=== PATIENT | female | born 1990 | race Caucasian/White ===

== ENCOUNTER 2019-09-08 20:56 | Observation (INO) ==
[2019-09-08] MEDS ORDERED: Ringers Solution, Lactated 1,000 ML IVC SCH (21:30)
[2019-09-08] MEDS ORDERED: Acetaminophen 325 MG TABLET PO PRN (21:37)
[2019-09-08] MEDS ORDERED: *HR* Promethazine 25 MG/ML VIAL IVP PRN (21:38)
[2019-09-08] MEDS ORDERED: Ondansetron 4 MG/2 ML VIAL IVP PRN (21:38)
[2019-09-08 21:48] LABS: Basophils # 0.1 K/mcL (0.0-0.2); Basophils % 0.3 %; Hemoglobin 12.8 g/dL (11.5-15.4); Lymphocytes % 4.8 %; Mean Corpuscular HGB Conc 34.6 g/dL (31.6-35.5); Mean Corpuscular Hemoglobin 29.8 pg (28.0-33.3); Mean Corpuscular Volume 86.2 fL (83.0-100.0); Monocytes # 1.4 K/mcL (0.0-1.3); Monocytes % 6.4 %; Neutrophils # 18.4 K/mcL (1.6-8.9); Platelet Count 244 K/mcL (140-400); Red Blood Count 4.29 M/mcL (3.82-4.97); Red Cell Distribution Width 13.4 % (11.5-14.5); Segmented Neutrophils % 86.5 %; White Blood Count 21.3 K/mcL (4.3-11.1)
[2019-09-08 21:59] LABS: Amphetamine Screen,Urine Negative ng/mL (Cutoff=1000); Barbiturate Screen,Urine Negative ng/mL (Cutoff=200); Benzodiazepines Screen,Urine Negative ng/mL (Cutoff=200); Cannabinoid Screen,Urine Negative ng/mL (Cutoff = 50); Cocaine Screen,Urine Negative ng/mL (Cutoff= 300); Opiate Screen,Urine Negative ng/mL (Cutoff=300); Phencyclidine Screen,Urine Negative ng/mL (Cutoff=25)
[2019-09-08] MEDS: Ringers Solution, Lactated 1,000 ML IVC ONE ×2 (21:59→23:36)
[2019-09-08 22:03] LABS: Alanine Aminotransferase 14 Units/L (7-52); Albumin 3.6 g/dL (3.5-5.7); Albumin/Globulin Ratio 1.1 (1.1-2.2); Alkaline Phosphatase 118 Units/L (34-104); Aspartate Amino Transferase 17 Units/L (13-39); BUN/Creatinine Ratio 10 (6-26); Bilirubin,Total 0.8 mg/dL (0.3-1.0); Blood Urea Nitrogen 6 mg/dL (6-20); Calcium 8.8 mg/dL (8.6-10.3); Carbon Dioxide 18 mEq/L (23-29); Chloride 104 mEq/L (98-107); Globulin 3.3 g/dL (2.4-3.5); Glucose 96 mg/dL (70-105); Osmolality,Calculated 275 (280-300); Potassium 3.6 mEq/L (3.5-5.1); Sodium 134 mEq/L (136-145); Total Protein 6.9 g/dL (6.4-8.9); eGFR For African Americans > 60 (> 60); eGFR For Non-African Americans > 60 (> 60)
[2019-09-08 22:08] LABS: Clarity,Urine Turbid (Clear); Color,Urine Dark Yellow (Yellow)
[2019-09-08 22:09] LABS: Bilirubin,Urine Small (Negative); Blood,Urine Small (Negative); Glucose,Urine (UA) Normal (Normal); Ketones,Urine >=160 mg/dL (Negative); Leukocyte Esterase,Urine Large (Negative); Nitrite,Urine Positive (Negative); Protein,Urine 100 mg/dL (Neg-Trace); Specific Gravity,Urine 1.023 (1.010-1.025); Urobilinogen,Urine Normal (Normal)
[2019-09-08 22:10] LABS: Bacteria,Urine Many per hpf (None-Few); Mucus,Urine Few per lpf (Few); Squamous Epithelial Cell,Urine Many per lpf (None-Few); WBC,Urine TNTC per hpf (0-3)
[2019-09-08] MEDS ORDERED: cefTRIAXone 1,000 MG in 0.9 % Sodium Chloride Mini Bag 100 ML IVPB ONE (22:40)
[2019-09-08] MEDS ORDERED: NIFEdipine 10 MG CAPSULE PO ONE ×2 (22:43→23:25)
[2019-09-08 23:06] LABS: Candida DNA Not Detected (Not Detect); Gardnerella DNA Not Detected (Not Detect); Trichomonas DNA Not Detected (Not Detect)
[2019-09-08] MEDS ORDERED: Ondansetron 4 MG/2 ML VIAL IVP ONE (23:15)
[2019-09-08] MEDS ORDERED: Ringers Solution, Lactated 1,000 ML IVC ONE (23:25)
[2019-09-09] MEDS ORDERED: Famotidine 20 MG/2 ML VIAL IVP ONE (00:55)
== END 2019-09-09 02:12 | disposition home or self-care (01) ==
LOC: 1NENULAB
PROVIDERS: ADMIT Registered Nurse; ATTEND Registered Nurse

== ENCOUNTER 2019-09-24 19:53 | Inpatient (IN) ==
[2019-09-24] MEDS ORDERED: Famotidine 20 MG/2 ML VIAL IVP PRN (20:01)
[2019-09-24] MEDS ORDERED: Naloxone 0.4 MG/ML INJ IVP PRN (20:01)
[2019-09-24] MEDS ORDERED: Ondansetron 4 MG/2 ML VIAL IVP PRN ×2 (20:01→22:07)
[2019-09-24] MEDS ORDERED: Metoclopramide 10 MG/2 ML VIAL IVP PRN (20:01)
[2019-09-24] MEDS ORDERED: Penicillin G Potassium 5,000,000 UNIT in 0.9 % Sodium Chloride Mini Bag 100 ML IVPB ONE (20:05)
[2019-09-24] MEDS ORDERED: Ringers Solution, Lactated 1,000 ML IVC SCH (20:15)
[2019-09-24] MEDS ORDERED: Betamethasone Acet/SodPhos 30 MG/5 ML VIAL IM SCH (20:15)
[2019-09-24] MEDS ORDERED: Ringers Solution, Lactated 1,000 ML ONE (20:20)
[2019-09-24 20:45] LABS: Basophils # 0.1 K/mcL (0.0-0.2); Basophils % 0.4 %; Eosinophils # 0.1 K/mcL (0.0-0.6); Eosinophils % 0.5 %; Hematocrit 36.1 % (35.3-44.9); Immature Granulocytes % 1.5 % (0-4); Lymphocytes % 11.6 %; Mean Corpuscular HGB Conc 33.2 g/dL (31.6-35.5); Mean Corpuscular Hemoglobin 29.6 pg (28.0-33.3); Mean Corpuscular Volume 88.9 fL (83.0-100.0); Mean Platelet Volume 9.9 fL (9.4-12.4); Monocytes # 1.2 K/mcL (0.0-1.3); Monocytes % 7.1 %; Neutrophils # 13.7 K/mcL (1.6-8.9); Platelet Count 376 K/mcL (140-400); Red Blood Count 4.06 M/mcL (3.82-4.97); Red Cell Distribution Width 13.3 % (11.5-14.5); Segmented Neutrophils % 78.9 %; White Blood Count 17.3 K/mcL (4.3-11.1)
[2019-09-24] MEDS ORDERED: *HR* FentaNYL (PF) 100 MCG/2 ML VIAL EP ONE (20:45)
[2019-09-24] MEDS ORDERED: Ropivacaine/PF 0.2% 20 ML VIAL EP ONE (20:45)
[2019-09-24] MEDS ORDERED: Epidural Premix (fent/bupiv) 110 ML EP SCH (20:45)
[2019-09-24] MEDS ORDERED: Ropivacaine/PF 0.2% 20 ML VIAL ONE (20:50)
[2019-09-24] MEDS ORDERED: *HR* FentaNYL (PF) 100 MCG/2 ML VIAL ONE (20:50)
[2019-09-24] MEDS ORDERED: EPHEDrine 50 MG/ML VIAL IVP PRN (21:13)
[2019-09-24] MEDS ORDERED: Azithromycin 500 MG in 0.9 % Sodium Chloride 250 ML IVPB ONE (21:41)
[2019-09-24] MEDS ORDERED: *HR* Oxytocin 10 UNIT/ML VIAL IM ONE (21:42)
[2019-09-24] MEDS ORDERED: Chloroprocaine/PF 20 ML VIAL INFILT ONE (21:42)
[2019-09-24] MEDS ORDERED: Ondansetron 4 MG/2 ML VIAL ONE (22:00)
[2019-09-24] MEDS ORDERED: Acetaminophen IV 1,000 MG/100 ML INFUS..BTL IVPB ONE (22:07)
[2019-09-24] MEDS ORDERED: *HR* HYDROmorphone (PF) 1 MG/ML SYRINGE IVP PRN (22:07)
[2019-09-25] MEDS ORDERED: Penicillin G Potassium 2,500,000 UNIT in 0.9 % Sodium Chloride 100 ML IVPB SCH
[2019-09-25] MEDS ORDERED: Ringers Solution, Lactated 1,000 ML IVC SCH (01:04)
[2019-09-25] MEDS ORDERED: Rho Immune Globulin 1,500 UNIT SYRINGE IM ONE (01:04)
[2019-09-25] MEDS ORDERED: Oxytocin 20 units/ LR 1000 mL 20 UNIT/1,000 ML BAG IVC SCH (01:04)
[2019-09-25] MEDS ORDERED: Simethicone 80 MG TAB.CHEW PO PRN (01:04)
[2019-09-25] MEDS ORDERED: Sennosides 8.6 MG TABLET PO PRN (01:04)
[2019-09-25] MEDS ORDERED: Ondansetron 4 MG/2 ML VIAL IVP PRN (01:04)
[2019-09-25] MEDS: Oxytocin 20 units/ LR 1000 mL 20 UNIT/1,000 ML BAG IVC SCH ×2 (01:39→09:58)
[2019-09-25] MEDS: Ibuprofen 600 MG TABLET PO PRN ×3 (01:40→16:58)
[2019-09-25] MEDS: *HR* Buprenorphine HCl 8 MG TAB.SUBL SL SCH ×3 (01:43→22:13)
[2019-09-25] MEDS: *HR* OxyCODONE/APAP 5/325 TABLET PO PRN ×3 (06:01→16:58)
[2019-09-25] MEDS: Nicotine 21 MG PATCH.TD24 TD SCH (08:12)
[2019-09-25] MEDS: Prenatal Vit/FA 1 EACH TABLET PO SCH (08:19)
[2019-09-26] MEDS: *HR* OxyCODONE/APAP 5/325 TABLET PO PRN (00:01)
[2019-09-26] MEDS: Ibuprofen 600 MG TABLET PO PRN ×2 (00:01→08:02)
[2019-09-26] MEDS ORDERED: Etonogestrel 68 MG IMPLANT IL ONE (00:25)
[2019-09-26] MEDS ORDERED: Lidocaine/EPI 1:100k 1% 20 ML VIAL INFILT ONE (00:25)
[2019-09-26 06:48] LABS: Basophils # 0.1 K/mcL (0.0-0.2); Basophils % 0.5 %; Eosinophils # 0.1 K/mcL (0.0-0.6); Eosinophils % 0.6 %; Hematocrit 32.6 % (35.3-44.9); Hemoglobin 10.5 g/dL (11.5-15.4); Immature Granulocytes % 1.9 % (0-4); Lymphocytes # 2.7 K/mcL (0.6-4.6); Lymphocytes % 18.6 %; Mean Corpuscular HGB Conc 32.2 g/dL (31.6-35.5); Mean Corpuscular Hemoglobin 29.6 pg (28.0-33.3); Mean Corpuscular Volume 91.8 fL (83.0-100.0); Mean Platelet Volume 10.1 fL (9.4-12.4); Monocytes # 1.1 K/mcL (0.0-1.3); Monocytes % 7.3 %; Neutrophils # 10.3 K/mcL (1.6-8.9); Platelet Count 340 K/mcL (140-400); Red Blood Count 3.55 M/mcL (3.82-4.97); Red Cell Distribution Width 13.6 % (11.5-14.5); Segmented Neutrophils % 71.1 %; White Blood Count 14.5 K/mcL (4.3-11.1)
[2019-09-26] MEDS: *HR* Buprenorphine HCl 8 MG TAB.SUBL SL SCH (08:02)
[2019-09-26] MEDS: Nicotine 21 MG PATCH.TD24 TD SCH ×2 (08:03→08:16)
[2019-09-26] MEDS: Prenatal Vit/FA 1 EACH TABLET PO SCH (08:03)
[2019-09-26 08:09] VITALS: BP 117/75
== END 2019-09-26 10:32 | disposition home or self-care (01) | DRG 540 ==
LOC: 1NENULAB → 1NENUOBS 09-25 03:50
PROVIDERS: ADMIT Advanced Practice Midwife; ATTEND Advanced Practice Midwife